=== PATIENT | male | born 1960 | race Caucasian/White ===

== ENCOUNTER 2021-10-19 13:23 | Inpatient (IN) | payer BC ==
[2021-10-19] MEDS ORDERED: SODIUM CHLORIDE 0.9% 500 ML INFUS.BAG IV ONE ×2 (16:40→18:56)
[2021-10-19 17:45] LABS: BASO % 0.1 % (0-2.0); HEMATOCRIT 46.6 % (35.4-49); HEMOGLOBIN 15.6 GM/dL (11.7-16.9); MCH 30.8 pg (25.7-33.7); MCHC 33.6 g/dl (32.0-35.9); MEAN CELL VOLUME 91.9 fl (80-96); MEAN PLT VOLUME 9.8 fl (7.5-11.1); MONO % 7.8 % (3.8-10.2); NEUT % 88.1 % (42.8-82.8); PLATELET COUNT 164 10^3/uL (134-434); RBC 5.07 M/mm3 (4.00-5.60); RDW 13.5 % (11.9-15.9); WHITE BLOOD COUNT 14.5 K/mm3 (4.0-10.0)
[2021-10-19 17:55] LABS: EPI CELLS 20 /uL (0-25.1); HYALINE CASTS 10 /uL (0-3.1); PH,URINE 5.5 (5.0-8.0); URINE APPEARANCE CLEAR; URINE BACTERIA 4 /uL (0-1359); URINE BILIRUBIN NEGATIVE (NEGATIVE); URINE COLOR DK YELLOW; URINE GLUCOSE (UA) NEGATIVE (NEGATIVE); URINE KETONE 1+ (NEGATIVE); URINE LEUK ESTERASE 2+ (NEGATIVE); URINE NITRITE NEGATIVE (NEGATIVE); URINE PROTEIN TRACE (NEGATIVE); URINE RBC 657 /uL (0-23.9); URINE UROBILINOGEN 0.2 mg/dL (0.2-1.0); URINE WBC 199 /uL (0-25.8)
[2021-10-19 18:06] LABS: BLOOD UREA NITROGEN 14.3 mg/dL (7-18); CALCIUM 8.5 mg/dL (8.5-10.1)
[2021-10-19 18:07] LABS: ALBUMIN 3.8 g/dl (3.4-5.0)
[2021-10-19 18:10] LABS: CREATININE 1.2 mg/dL (0.55-1.3)
[2021-10-19 18:11] LABS: BILIRUBIN,TOTAL 0.9 mg/dL (0.2-1); TOT PROT 7.8 g/dl (6.4-8.2)
[2021-10-19] MEDS ORDERED: CEFTRIAXONE 1,000 MG in DEXTROSE 5%-WATER - 50 ML IVPB ONE (18:56)
[2021-10-19] MEDS ORDERED: CEFTRIAXONE 1 GM/50 ML BAG ONE (19:09)
[2021-10-19] MEDS ORDERED: ACETAMINOPHEN 325 MG TABLET (FP) ONE (19:20)
[2021-10-19] MEDS ORDERED: ACETAMINOPHEN 500 MG TABLET (FP) PO ONE (19:21)
[2021-10-19] MEDS ORDERED: SODIUM CHLORIDE 2,803 ML IV ONE (20:38)
[2021-10-19] MEDS ORDERED: PIPERACILLIN/TAZOB 4.5 GM 4.5 GM/100 ML BAG IVPB ONE (22:16)
[2021-10-19] MEDS ORDERED: ACETAMINOPHEN 1000 MG/100 ML BAG IVPB ONE (22:17)
[2021-10-19] MEDS ORDERED: PIPERACILLIN/TAZOB 4.5 GM 4.5 GM in DEXTROSE 5%-WATER 100 ML IVPB ONE (22:30)
[2021-10-19] MEDS ORDERED: ACETAMINOPHEN INJECTION 100 ML IVPB ONE (22:43)
[2021-10-20] MEDS ORDERED: SODIUM CHLORIDE 1,000 ML IV STA ×2 (00:11→02:46)
[2021-10-20] MEDS: SODIUM CHLORIDE 1,000 ML IV SCH ×2 (02:03→13:13)
[2021-10-20] MEDS ORDERED: ACETAMINOPHEN INJECTION 100 ML IVPB ONE (04:29)
[2021-10-20] MEDS: ACETAMINOPHEN 1000 MG/100 ML BAG IVPB PRN ×3 (04:34→20:46)
[2021-10-20] MEDS ORDERED: PIPERACILLIN/TAZOB 3.375 GM 3.375 GM/50 ML BAG IVPB ONE (06:33)
[2021-10-20] MEDS: PIPERACILLIN/TAZOB 3.375 GM 3.375 GM in DEXTROSE 5%-WATER - 50 ML IVPB SCH ×4 (06:37→22:08)
[2021-10-20 07:18] LABS: HEMATOCRIT 37.3 % (35.4-49); HEMOGLOBIN 13.1 GM/dL (11.7-16.9); MCH 31.8 pg (25.7-33.7); MEAN CELL VOLUME 90.9 fl (80-96); MEAN PLT VOLUME 9.1 fl (7.5-11.1); PLATELET COUNT 96 10^3/uL (134-434); RDW 13.7 % (11.9-15.9); WHITE BLOOD COUNT 13.8 K/mm3 (4.0-10.0)
[2021-10-20 07:32] LABS: CHLORIDE 113 mmol/L (98-107); SODIUM 142 mmol/L (136-145)
[2021-10-20 07:34] LABS: ANION GAP 8 MMOL/L (8-16); CO2 22 mmol/L (21-32); GLUCOSE,RANDOM 112 mg/dL (74-106)
[2021-10-20 07:35] LABS: BLOOD UREA NITROGEN 9.9 mg/dL (7-18)
[2021-10-20 07:37] LABS: SGPT/ALT 40 U/L (13-61)
[2021-10-20 07:38] LABS: CHOLESTEROL 109 mg/dL (50-200); SGOT/AST 30 U/L (15-37)
[2021-10-20 07:39] LABS: BILIRUBIN,TOTAL 1.5 mg/dL (0.2-1); LDL CHOLESTEROL (ONLY SJRH) 67 mg/dL (5-100); TRIGLYCERIDES 58 mg/dL (0-150)
[2021-10-20 07:40] LABS: ALK PHOS 38 U/L (45-117)
[2021-10-20 07:41] LABS: HDL CHOLESTEROL 39 mg/dL (40-60)
[2021-10-20 07:57] LABS: ALBUMIN 2.5 g/dl (3.4-5.0); CALCIUM 6.9 mg/dL (8.5-10.1); TOT PROT 5.6 g/dl (6.4-8.2)
[2021-10-20] MEDS ORDERED: ENOXAPARIN NA (PORCINE) 40 MG/0.4 ML DISP.SYRIN SQ ONE (09:39)
[2021-10-20] MEDS: ENOXAPARIN NA (PORCINE) 40 MG/0.4 ML DISP.SYRIN SQ SCH (09:40)
[2021-10-20 09:42] LABS: ANISOCYTOSIS 0; MACROCYTOSIS 0
[2021-10-20 09:45] LABS: PLATELET ESTIMATE SLT DECREASE
[2021-10-20 13:37] VITALS: BMI 33.7
[2021-10-20] MEDS ORDERED: PIPERACILLIN/TAZOBACTAM 3.375 GM VIAL IVPB ONE ×2 (14:54→22:00)
[2021-10-20] MEDS ORDERED: DEXTROSE 5%-WATER - 50 ML IVPB ONE ×2 (14:54→22:00)
[2021-10-20] MEDS ORDERED: CALCIUM CARBONATE 650 MG TABLET PO ONE (15:28)
[2021-10-21] MEDS: SODIUM CHLORIDE 1,000 ML IV SCH (03:39)
[2021-10-21] MEDS: ACETAMINOPHEN 1000 MG/100 ML BAG IVPB PRN ×2 (03:47→18:21)
[2021-10-21] MEDS ORDERED: DEXTROSE 5%-WATER - 50 ML IVPB ONE (05:31)
[2021-10-21] MEDS ORDERED: PIPERACILLIN/TAZOBACTAM 3.375 GM VIAL IVPB ONE (05:31)
[2021-10-21] MEDS: PIPERACILLIN/TAZOB 3.375 GM 3.375 GM in DEXTROSE 5%-WATER - 50 ML IVPB SCH (06:01)
[2021-10-21 07:11] LABS: BASO % 0.2 % (0-2.0); EOS % 0.1 % (0-4.5); HEMATOCRIT 36.5 % (35.4-49); HEMOGLOBIN 12.4 GM/dL (11.7-16.9); LYMPH % 9.8 % (8-40); MCH 31.1 pg (25.7-33.7); MCHC 33.9 g/dl (32.0-35.9); MEAN CELL VOLUME 91.8 fl (80-96); MEAN PLT VOLUME 9.3 fl (7.5-11.1); MONO % 5.5 % (3.8-10.2); NEUT % 84.4 % (42.8-82.8); PLATELET COUNT 81 10^3/uL (134-434); RBC 3.97 M/mm3 (4.00-5.60); RDW 13.9 % (11.9-15.9); WHITE BLOOD COUNT 12.4 K/mm3 (4.0-10.0)
[2021-10-21 07:12] LABS: HEMATOCRIT 36.2 % (35.4-49); HEMOGLOBIN 12.4 GM/dL (11.7-16.9); MCH 31.3 pg (25.7-33.7); MCHC 34.1 g/dl (32.0-35.9); MEAN CELL VOLUME 91.7 fl (80-96); MEAN PLT VOLUME 9.6 fl (7.5-11.1); PLATELET COUNT 82 10^3/uL (134-434); RBC 3.95 M/mm3 (4.00-5.60); RDW 13.7 % (11.9-15.9); WHITE BLOOD COUNT 12.2 K/mm3 (4.0-10.0)
[2021-10-21 07:30] LABS: ALBUMIN 2.3 g/dl (3.4-5.0); BLOOD UREA NITROGEN 8.2 mg/dL (7-18); CALCIUM 7.8 mg/dL (8.5-10.1)
[2021-10-21 07:33] LABS: CREATININE 0.7 mg/dL (0.55-1.3)
[2021-10-21 07:35] LABS: BILIRUBIN,TOTAL 0.9 mg/dL (0.2-1); TOT PROT 5.2 g/dl (6.4-8.2)
[2021-10-21] MEDS ORDERED: MEROPENEM 1 GM in DEXTROSE 5%-WATER 100 ML IVPB SCH ×2 (11:00→18:00)
[2021-10-21] MEDS ORDERED: DEXTROSE 5%-WATER 100 ML IVPB ONE ×2 (11:11→18:15)
[2021-10-21] MEDS ORDERED: MEROPENEM 1 GM VIAL (RESTRICTED TO ID) IVPB ONE ×2 (11:11→18:15)
[2021-10-21] MEDS: ENOXAPARIN NA (PORCINE) 40 MG/0.4 ML DISP.SYRIN SQ SCH (11:13)
[2021-10-21] MEDS: SODIUM CHLORIDE 0.9%/KCL 20 MEQ/1,000 ML INFUS.BAG IV SCH (18:20)
[2021-10-21] MEDS: MEROPENEM 1 GM in DEXTROSE 5%-WATER 100 ML IVPB SCH (19:02)
[2021-10-22] MEDS ORDERED: MEROPENEM 1 GM VIAL (RESTRICTED TO ID) IVPB ONE ×3 (01:10→17:13)
[2021-10-22] MEDS ORDERED: DEXTROSE 5%-WATER 100 ML IVPB ONE ×3 (01:10→17:13)
[2021-10-22] MEDS: MEROPENEM 1 GM in DEXTROSE 5%-WATER 100 ML IVPB SCH ×3 (01:11→17:17)
[2021-10-22] MEDS: ACETAMINOPHEN 1000 MG/100 ML BAG IVPB PRN ×3 (03:19→22:30)
[2021-10-22 08:22] LABS: BASO % 0.2 % (0-2.0); EOS % 0.3 % (0-4.5); HEMATOCRIT 40.1 % (35.4-49); HEMOGLOBIN 13.7 GM/dL (11.7-16.9); MCH 31.4 pg (25.7-33.7); MCHC 34.1 g/dl (32.0-35.9); MEAN CELL VOLUME 92.1 fl (80-96); MEAN PLT VOLUME 9.2 fl (7.5-11.1); MONO % 6.8 % (3.8-10.2); NEUT % 79.7 % (42.8-82.8); PLATELET COUNT 101 10^3/uL (134-434); RBC 4.35 M/mm3 (4.00-5.60); RDW 13.8 % (11.9-15.9)
[2021-10-22 08:42] LABS: BLOOD UREA NITROGEN 6.4 mg/dL (7-18); CALCIUM 8.1 mg/dL (8.5-10.1)
[2021-10-22 08:45] LABS: CREATININE 0.7 mg/dL (0.55-1.3)
[2021-10-22 08:47] LABS: BILIRUBIN,TOTAL 0.7 mg/dL (0.2-1); TOT PROT 6.2 g/dl (6.4-8.2)
[2021-10-22 09:10] LABS: ALBUMIN 2.9 g/dl (3.4-5.0)
[2021-10-22] MEDS: ENOXAPARIN NA (PORCINE) 40 MG/0.4 ML DISP.SYRIN SQ SCH (09:12)
[2021-10-22] MEDS: SODIUM CHLORIDE 0.9%/KCL 20 MEQ/1,000 ML INFUS.BAG IV SCH (09:14)
[2021-10-22] MEDS ORDERED: POTASSIUM CHLORIDE TABS 20 MEQ TABLET.ER (FP) PO ONE (12:15)
[2021-10-23] MEDS ORDERED: MEROPENEM 1 GM VIAL (RESTRICTED TO ID) IVPB ONE ×3 (01:19→17:07)
[2021-10-23] MEDS ORDERED: DEXTROSE 5%-WATER 100 ML IVPB ONE ×3 (01:20→17:07)
[2021-10-23] MEDS: MEROPENEM 1 GM in DEXTROSE 5%-WATER 100 ML IVPB SCH ×3 (02:00→17:20)
[2021-10-23] MEDS: ACETAMINOPHEN 1000 MG/100 ML BAG IVPB PRN ×2 (09:07→18:40)
[2021-10-23] MEDS: ENOXAPARIN NA (PORCINE) 40 MG/0.4 ML DISP.SYRIN SQ SCH (09:08)
[2021-10-23 10:36] LABS: BASO % 0.5 % (0-2.0); EOS % 0.6 % (0-4.5); HEMATOCRIT 37.9 % (35.4-49); HEMOGLOBIN 13.2 GM/dL (11.7-16.9); LYMPH % 16.9 % (8-40); MCH 31.7 pg (25.7-33.7); MCHC 34.9 g/dl (32.0-35.9); MONO % 9.9 % (3.8-10.2); NEUT % 72.1 % (42.8-82.8); PLATELET COUNT 123 10^3/uL (134-434); RBC 4.16 M/mm3 (4.00-5.60); RDW 14.1 % (11.9-15.9); WHITE BLOOD COUNT 7.2 K/mm3 (4.0-10.0)
[2021-10-23 10:48] LABS: CALCIUM 8.2 mg/dL (8.5-10.1)
[2021-10-23 10:49] LABS: ALBUMIN 2.8 g/dl (3.4-5.0); BLOOD UREA NITROGEN 6.3 mg/dL (7-18)
[2021-10-23 10:52] LABS: CREATININE 0.7 mg/dL (0.55-1.3)
[2021-10-23 10:54] LABS: BILIRUBIN,TOTAL 0.7 mg/dL (0.2-1); TOT PROT 6.2 g/dl (6.4-8.2)
[2021-10-23 12:12] LABS: ANISOCYTOSIS 0; HELMET CELLS 0; HOWELL-JOLLY BODIES 0; MACROCYTOSIS 0; OVALOCYTE 0; ROULEAU 0; SICKELED CELLS 0; TARGET CELLS 0; TEAR DROP CELLS 0; TOXIC GRANULATION 0
[2021-10-23] MEDS: SODIUM CHLORIDE 0.9%/KCL 20 MEQ/1,000 ML INFUS.BAG IV SCH (16:03)
[2021-10-23] MEDS ORDERED: POTASSIUM CHLORIDE TABS 10 MEQ TABLET.ER (FP) PO ONE (17:22)
[2021-10-24] MEDS ORDERED: DEXTROSE 5%-WATER 100 ML IVPB ONE ×3 (00:52→16:44)
[2021-10-24] MEDS ORDERED: MEROPENEM 1 GM VIAL (RESTRICTED TO ID) IVPB ONE ×3 (00:52→16:44)
[2021-10-24] MEDS: MEROPENEM 1 GM in DEXTROSE 5%-WATER 100 ML IVPB SCH ×3 (01:45→17:31)
[2021-10-24] MEDS: ENOXAPARIN NA (PORCINE) 40 MG/0.4 ML DISP.SYRIN SQ SCH (09:44)
[2021-10-24 10:52] LABS: HEMATOCRIT 38.8 % (35.4-49); HEMOGLOBIN 13.4 GM/dL (11.7-16.9); MCH 31.3 pg (25.7-33.7); MCHC 34.5 g/dl (32.0-35.9); MEAN CELL VOLUME 90.5 fl (80-96); MEAN PLT VOLUME 9.3 fl (7.5-11.1); PLATELET COUNT 141 10^3/uL (134-434); RBC 4.29 M/mm3 (4.00-5.60); RDW 13.8 % (11.9-15.9); WHITE BLOOD COUNT 7.2 K/mm3 (4.0-10.0)
[2021-10-24 11:00] LABS: CALCIUM 8.3 mg/dL (8.5-10.1)
[2021-10-24 11:01] LABS: ALBUMIN 2.7 g/dl (3.4-5.0); BLOOD UREA NITROGEN 7.8 mg/dL (7-18)
[2021-10-24 11:04] LABS: CREATININE 0.7 mg/dL (0.55-1.3)
[2021-10-24 11:06] LABS: BILIRUBIN,TOTAL 0.4 mg/dL (0.2-1); TOT PROT 6.4 g/dl (6.4-8.2)
[2021-10-24 11:40] LABS: ANISOCYTOSIS 0; HELMET CELLS 0; HOWELL-JOLLY BODIES 0; MACROCYTOSIS 0; OVALOCYTE 0; ROULEAU 0; SICKELED CELLS 0; TARGET CELLS 0; TEAR DROP CELLS 0; TOXIC GRANULATION 0
[2021-10-25] MEDS ORDERED: MEROPENEM 1 GM VIAL (RESTRICTED TO ID) IVPB ONE ×3 (00:26→16:45)
[2021-10-25] MEDS ORDERED: DEXTROSE 5%-WATER 100 ML IVPB ONE ×3 (00:26→16:45)
[2021-10-25] MEDS: MEROPENEM 1 GM in DEXTROSE 5%-WATER 100 ML IVPB SCH ×3 (01:24→17:47)
[2021-10-25 08:52] LABS: BASO % 0.4 % (0-2.0); EOS % 1.4 % (0-4.5); HEMATOCRIT 41.7 % (35.4-49); HEMOGLOBIN 14.3 GM/dL (11.7-16.9); LYMPH % 24.1 % (8-40); MCH 31.3 pg (25.7-33.7); MCHC 34.4 g/dl (32.0-35.9); MEAN CELL VOLUME 91.1 fl (80-96); MONO % 15.6 % (3.8-10.2); NEUT % 58.5 % (42.8-82.8); PLATELET COUNT 186 10^3/uL (134-434); RBC 4.58 M/mm3 (4.00-5.60); RDW 14.1 % (11.9-15.9); WHITE BLOOD COUNT 8.2 K/mm3 (4.0-10.0)
[2021-10-25 09:18] LABS: ALBUMIN 3.2 g/dl (3.4-5.0); CALCIUM 8.7 mg/dL (8.5-10.1)
[2021-10-25 09:19] LABS: BLOOD UREA NITROGEN 11.8 mg/dL (7-18)
[2021-10-25 09:21] LABS: CREATININE 0.7 mg/dL (0.55-1.3)
[2021-10-25 09:22] LABS: BILIRUBIN,TOTAL 0.7 mg/dL (0.2-1)
[2021-10-25 09:23] LABS: TOT PROT 6.9 g/dl (6.4-8.2)
[2021-10-25] MEDS: ENOXAPARIN NA (PORCINE) 40 MG/0.4 ML DISP.SYRIN SQ SCH (09:51)
[2021-10-25] MEDS: SELENIUM SULFIDE 2.25% 180 ML SHAMPOO TP SCH (22:39)
[2021-10-26] MEDS ORDERED: MEROPENEM 1 GM VIAL (RESTRICTED TO ID) IVPB ONE ×3 (01:14→17:42)
[2021-10-26] MEDS ORDERED: DEXTROSE 5%-WATER 100 ML IVPB ONE ×3 (01:15→17:42)
[2021-10-26] MEDS: MEROPENEM 1 GM in DEXTROSE 5%-WATER 100 ML IVPB SCH ×3 (01:33→17:43)
[2021-10-26 08:41] LABS: BASO % 0.5 % (0-2.0); EOS % 1.2 % (0-4.5); HEMATOCRIT 42.4 % (35.4-49); HEMOGLOBIN 14.7 GM/dL (11.7-16.9); LYMPH % 30.3 % (8-40); MCH 31.6 pg (25.7-33.7); MCHC 34.6 g/dl (32.0-35.9); MEAN CELL VOLUME 91.1 fl (80-96); MEAN PLT VOLUME 8.3 fl (7.5-11.1); MONO % 12.6 % (3.8-10.2); NEUT % 55.4 % (42.8-82.8); PLATELET COUNT 223 10^3/uL (134-434); RBC 4.65 M/mm3 (4.00-5.60); RDW 14.3 % (11.9-15.9); WHITE BLOOD COUNT 7.4 K/mm3 (4.0-10.0)
[2021-10-26 09:03] LABS: CALCIUM 8.9 mg/dL (8.5-10.1)
[2021-10-26 09:04] LABS: ALBUMIN 3.4 g/dl (3.4-5.0); BLOOD UREA NITROGEN 14.4 mg/dL (7-18)
[2021-10-26 09:07] LABS: CREATININE 0.8 mg/dL (0.55-1.3)
[2021-10-26 09:08] LABS: TOT PROT 7.4 g/dl (6.4-8.2)
[2021-10-26 09:09] LABS: BILIRUBIN,TOTAL 0.7 mg/dL (0.2-1)
[2021-10-26] MEDS: ENOXAPARIN NA (PORCINE) 40 MG/0.4 ML DISP.SYRIN SQ SCH (10:06)
[2021-10-26] MEDS: SELENIUM SULFIDE 2.25% 180 ML SHAMPOO TP SCH (10:07)
[2021-10-26 19:15] VITALS: BP 104/76; PULSE 87; TEMP 98.1
== END 2021-10-26 18:50 | disposition home or self-care (01) | DRG 862 ==
LOC: JER 13:23 → JERBED 19:30 → J5S 10-20 12:37 → UNDODISIN 10-26 17:03
PROVIDERS: ADMIT Hospitalist
PROC: 02HV33Z Insertion of Infusion Device into Superior Vena Cava, Percutaneous Approach (ICD-10-PCS; principal; 2021-10-26)
PROC: B518ZZA Fluoroscopy of Superior Vena Cava, Guidance (ICD-10-PCS; 2021-10-26)
DX: T81.44XA Sepsis following a procedure, initial encounter (principal); A41.51 Sepsis due to Escherichia coli [E. coli]; N39.0 Urinary tract infection, site not specified; N40.0 Benign prostatic hyperplasia without lower urinary tract symptoms; R00.0 Tachycardia, unspecified; D72.829 Elevated white blood cell count, unspecified; E66.9 Obesity, unspecified; Z68.33 Body mass index [BMI] 33.0-33.9, adult; D69.6 Thrombocytopenia, unspecified; L21.9 Seborrheic dermatitis, unspecified; I80.8 Phlebitis and thrombophlebitis of other sites; Y84.8 Other medical procedures as the cause of abnormal reaction of the patient, or of later complication, without mention of misadventure at the time of the procedure
CPT/HCPCS: 36415; 36569; 71046-TC-FY; 77001-TC-FY; 80048; 80053; 80061; 81003; 83036; 83605; 85025; 85027; 87040; 87086; 87186; 93005; 93010; 99285-25; C1751; C9803-CS; U0003; U0005

== ENCOUNTER 2021-10-27 10:17 | Day surgery (SDC) | payer BC ==
[2021-10-27] MEDS ORDERED: ERTAPENEM SODIUM 1 GM VIAL ONE (10:55)
[2021-10-27] MEDS ORDERED: SODIUM CHLORIDE 50 ML IVPB ONE (10:56)
[2021-10-27] MEDS ORDERED: ERTAPENEM SODIUM 1 GM in SODIUM CHLORIDE 50 ML IVPB ONE (11:00)
[2021-10-27 13:30] VITALS: BP 105/73; PULSE 81; TEMP 98.1
== END 2021-10-27 12:40 | disposition home or self-care (01) ==
LOC: JINFUSION 10:17 → J7W 10:43 → JINFUSION 12:40
PROVIDERS: ATTEND Internal Medicine Infectious Disease
DX: A41.51 Sepsis due to Escherichia coli [E. coli] (principal)
CPT/HCPCS: 96365

== ENCOUNTER 2021-10-28 10:52 | Day surgery (SDC) | payer BC ==
[~2021-10-28 10:52] MED LIST: ERTAPENEM SODIUM 1 GM in SODIUM CHLORIDE 50 ML IVPB ONE
[2021-10-28] MEDS ORDERED: SODIUM CHLORIDE 50 ML IVPB ONE (10:59)
[2021-10-28] MEDS ORDERED: ERTAPENEM SODIUM 1 GM VIAL ONE (10:59)
[2021-10-28 11:06] VITALS: BP 111/70; PULSE 115; TEMP 98.4
== END 2021-10-28 12:00 | disposition home or self-care (01) ==
LOC: JINFUSION 10:52 → J7W 10:53 → JINFUSION 12:00
PROVIDERS: ATTEND Internal Medicine Infectious Disease
DX: A41.51 Sepsis due to Escherichia coli [E. coli] (principal)
CPT/HCPCS: 96365

== ENCOUNTER 2021-10-29 10:28 | Day surgery (SDC) | payer BC ==
[2021-10-29] MEDS ORDERED: ERTAPENEM SODIUM 1 GM VIAL ONE (10:42)
[2021-10-29] MEDS ORDERED: SODIUM CHLORIDE 50 ML IVPB ONE (10:42)
[2021-10-29] MEDS ORDERED: ERTAPENEM SODIUM 1 GM in SODIUM CHLORIDE 50 ML IVPB ONE (10:45)
[2021-10-29 10:54] VITALS: BP 134/80; PULSE 103; TEMP 98.8
== END 2021-10-29 11:05 | disposition home or self-care (01) ==
LOC: JINFUSION 10:28 → J7W 10:29 → JINFUSION 11:05
PROVIDERS: ATTEND Internal Medicine Infectious Disease
DX: A41.51 Sepsis due to Escherichia coli [E. coli] (principal)
CPT/HCPCS: 96365

== ENCOUNTER 2021-10-30 10:45 | Day surgery (SDC) | payer BC ==
[2021-10-30] MEDS ORDERED: ERTAPENEM SODIUM 1 GM VIAL ONE (11:28)
[2021-10-30] MEDS ORDERED: SODIUM CHLORIDE 50 ML IVPB ONE (11:28)
[2021-10-30] MEDS ORDERED: ERTAPENEM SODIUM 1 GM in SODIUM CHLORIDE 50 ML IVPB ONE (11:30)
== END 2021-10-30 12:30 | disposition home or self-care (01) ==
LOC: JINFUSION 10:45 → J7W 10:46 → JINFUSION 12:30
PROVIDERS: ATTEND Internal Medicine Infectious Disease
DX: A41.51 Sepsis due to Escherichia coli [E. coli] (principal)
CPT/HCPCS: 96365

== ENCOUNTER 2021-10-31 11:05 | Day surgery (SDC) | payer BC ==
[2021-10-31] MEDS ORDERED: ERTAPENEM SODIUM 1 GM in DEXTROSE 5%-WATER - 50 ML IVPB ONE (11:30)
[2021-10-31] MEDS ORDERED: ERTAPENEM SODIUM 1 GM in SODIUM CHLORIDE 50 ML IVPB ONE (11:32)
[2021-10-31] MEDS ORDERED: ERTAPENEM SODIUM 1 GM VIAL ONE (11:38)
[2021-10-31] MEDS ORDERED: SODIUM CHLORIDE 50 ML IVPB ONE (11:38)
[2021-10-31 15:59] VITALS: BP 110/78; PULSE 86; TEMP 98
== END 2021-10-31 15:59 | disposition home or self-care (01) ==
LOC: J7W 11:05 → JINFUSION 11:05
PROVIDERS: ATTEND Internal Medicine Infectious Disease
DX: A41.51 Sepsis due to Escherichia coli [E. coli] (principal)
CPT/HCPCS: 96365; 96367

== ENCOUNTER 2021-11-01 12:13 | Day surgery (SDC) | payer BC ==
[2021-11-01] MEDS ORDERED: SODIUM CHLORIDE 50 ML IVPB ONE (12:32)
[2021-11-01] MEDS ORDERED: ERTAPENEM SODIUM 1 GM VIAL ONE (12:32)
[2021-11-01] MEDS ORDERED: ERTAPENEM SODIUM 1 GM in SODIUM CHLORIDE 50 ML IVPB ONE (12:45)
[2021-11-01 13:25] VITALS: BP 119/77; PULSE 102; TEMP 98.3
== END 2021-11-01 13:15 | disposition home or self-care (01) ==
LOC: JINFUSION 12:13 → J7W 12:14 → JINFUSION 13:15
PROVIDERS: ATTEND Internal Medicine Infectious Disease
DX: A41.51 Sepsis due to Escherichia coli [E. coli] (principal)
CPT/HCPCS: 96365

== ENCOUNTER 2021-11-02 12:19 | Day surgery (SDC) | payer BC ==
[2021-11-02] MEDS ORDERED: SODIUM CHLORIDE 50 ML IVPB ONE (12:29)
[2021-11-02] MEDS ORDERED: ERTAPENEM SODIUM 1 GM VIAL ONE (12:29)
[2021-11-02 14:11] VITALS: BP 122/81; PULSE 89; TEMP 98.2
== END 2021-11-02 14:50 | disposition home or self-care (01) ==
LOC: J7W 12:19 → JINFUSION 12:19
PROVIDERS: ATTEND Internal Medicine Infectious Disease
DX: A41.51 Sepsis due to Escherichia coli [E. coli] (principal)
CPT/HCPCS: 96365

== ENCOUNTER 2021-11-03 12:09 | Day surgery (SDC) | payer BC ==
[2021-11-03] MEDS ORDERED: ERTAPENEM SODIUM 1 GM VIAL ONE (12:43)
[2021-11-03] MEDS ORDERED: SODIUM CHLORIDE 50 ML IVPB ONE (12:43)
[2021-11-03] MEDS ORDERED: ERTAPENEM SODIUM 1 GM in SODIUM CHLORIDE 50 ML IVPB ONE (12:45)
[2021-11-03 12:51] VITALS: BP 108/71; PULSE 94; TEMP 98.7
== END 2021-11-03 13:25 | disposition home or self-care (01) ==
LOC: JINFUSION 12:09 → J7W 12:10 → JINFUSION 13:25
PROVIDERS: ATTEND Internal Medicine Infectious Disease
DX: A41.51 Sepsis due to Escherichia coli [E. coli] (principal)
CPT/HCPCS: 96365

== ENCOUNTER 2021-11-04 12:02 | Day surgery (SDC) | payer BC ==
[2021-11-04] MEDS ORDERED: ERTAPENEM SODIUM 1 GM in SODIUM CHLORIDE 50 ML IVPB ONE (12:45)
[2021-11-04] MEDS ORDERED: SODIUM CHLORIDE 50 ML IVPB ONE (12:49)
[2021-11-04] MEDS ORDERED: ERTAPENEM SODIUM 1 GM VIAL ONE (12:49)
[2021-11-04 15:00] VITALS: BP 122/87
== END 2021-11-04 14:55 | disposition home or self-care (01) ==
LOC: JINFUSION 12:02 → J7W 12:03 → JINFUSION 14:55
PROVIDERS: ATTEND Internal Medicine Infectious Disease
DX: A41.51 Sepsis due to Escherichia coli [E. coli] (principal)
CPT/HCPCS: 96365

== ENCOUNTER 2021-11-05 13:22 | Day surgery (SDC) | payer BC ==
[2021-11-05] MEDS ORDERED: ERTAPENEM SODIUM 1 GM VIAL ONE (13:33)
[2021-11-05] MEDS ORDERED: SODIUM CHLORIDE 50 ML IVPB ONE (13:34)
[2021-11-05 16:35] VITALS: BP 125/77
== END 2021-11-05 14:00 | disposition home or self-care (01) ==
LOC: JINFUSION 13:22 → J7W 13:29 → JINFUSION 14:00
PROVIDERS: ATTEND Internal Medicine Infectious Disease
DX: A41.51 Sepsis due to Escherichia coli [E. coli] (principal)
CPT/HCPCS: 96365

== ENCOUNTER 2021-11-06 08:11 | Day surgery (SDC) | payer BC ==
[2021-11-06] MEDS ORDERED: SODIUM CHLORIDE 50 ML IVPB ONE (08:19)
[2021-11-06] MEDS ORDERED: ERTAPENEM SODIUM 1 GM VIAL ONE (08:19)
[2021-11-06] MEDS ORDERED: ERTAPENEM SODIUM 1 GM in SODIUM CHLORIDE 50 ML IVPB ONE (08:30)
[2021-11-06 08:38] VITALS: BP 108/72; PULSE 87; TEMP 98.5
== END 2021-11-06 09:15 | disposition home or self-care (01) ==
LOC: J7W 08:11 → JINFUSION 08:11
PROVIDERS: ATTEND Internal Medicine Infectious Disease
DX: A41.51 Sepsis due to Escherichia coli [E. coli] (principal)
CPT/HCPCS: 96365

== ENCOUNTER 2021-11-07 08:08 | Day surgery (SDC) | payer BC ==
[2021-11-07] MEDS ORDERED: ERTAPENEM SODIUM 1 GM VIAL ONE (08:40)
[2021-11-07] MEDS ORDERED: SODIUM CHLORIDE 50 ML IVPB ONE (08:41)
[2021-11-07] MEDS ORDERED: ERTAPENEM SODIUM 1 GM in SODIUM CHLORIDE 50 ML IVPB ONE (08:45)
[2021-11-07 08:51] VITALS: BP 122/77; PULSE 86; TEMP 98
== END 2021-11-07 09:26 | disposition home or self-care (01) ==
LOC: JINFUSION 08:08 → J7W 08:11 → JINFUSION 09:26
PROVIDERS: ATTEND Internal Medicine Infectious Disease
DX: A41.51 Sepsis due to Escherichia coli [E. coli] (principal)
CPT/HCPCS: 96365

== ENCOUNTER 2025-03-06 06:26 | Day surgery (SDC) | payer BC ==
[2025-03-05 12:34] VITALS: BMI 32.8
[2025-03-06 11:30] VITALS: TEMP 98.7
[2025-03-06 11:57] VITALS: RESP 18
[2025-03-06 12:16] VITALS: BP 128/76; PULSE 56
== END 2025-03-06 12:16 | disposition home or self-care (01) ==
LOC: JASU-ENDO 06:26
PROVIDERS: ATTEND Internal Medicine Gastroenterology
PROC: 0DBM8ZX Excision of Descending Colon, Via Natural or Artificial Opening Endoscopic, Diagnostic (ICD-10-PCS; 2025-03-06)
PROC: 0DBK8ZX Excision of Ascending Colon, Via Natural or Artificial Opening Endoscopic, Diagnostic (ICD-10-PCS; principal; 2025-03-06 08:45)
DX: Z12.11 Encounter for screening for malignant neoplasm of colon (principal); D12.2 Benign neoplasm of ascending colon; D12.4 Benign neoplasm of descending colon; K64.8 Other hemorrhoids; K57.30 Diverticulosis of large intestine without perforation or abscess without bleeding; Z86.0101 Personal history of adenomatous and serrated colon polyps
CPT/HCPCS: 88305-TC